=== PATIENT | male | born 2000 | race Hispanic/Latino ===

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

== ENCOUNTER 2025-05-04 03:17 | Emergency (ER) | payer OTHER ==
[~2025-05-04] VITALS: Ht 172.7 cm; Wt 86.2 kg
--- NOTE | 2025-05-04 03:20 | NUR ---
UA CUP PROVIDED
--- NOTE | 2025-05-04 03:24 | NUR ---
UA COLLECTED AND SENT ORDERED
[2025-05-04 03:44] LABS: IMMATURE GRANULOCYTE ABSOLUTE 0.07 K/uL (0-1); NUCLEATED RED BLOOD CELLS 0.0 % (0.0-0.19); PLATELET COUNT (AUTO) 270 K/uL (130-400); RED BLOOD CELL COUNT(AUTO) 5.52 MIL/uL (4.50-6.20); RED CELL DISTRIBUTION WIDTH 12.4 % (11.0-15.5); WHITE BLOOD COUNT (AUTO) 9.4 K/uL (4.8-10.8)
--- NOTE | 2025-05-04 03:44 | EKG ---
[facility] Test Date: 2025-05-04 Test Time: 03:39:50 Pat Name: JONATHAN DENIS Department: [facility] Room: Gender: M Steno Typist: [id number] : 2000 Requested By: [address] Order Number: [id number] Reading MD: Lucho Fu Measurements Intervals Harold Rate: 103 P: 30 UT: 161 QRS: 22 QRSD: 85 T: -23 QT: 343 QTc: 450 Interpretive Statements Sinus tachycardia Compared to ECG 10/16/2015 03:13:34 Sinus rhythm no longer present ST (T wave) deviation no longer present Electronically Signed On 05-04-2025 11:15:38 [employer] by Lucho Fu Please click the below link to view image of tracing.
[2025-05-04 03:46] LABS: AMPHET/METH SCREEN,URINE NEGATIVE (NEGATIVE); BARBITURATE SCREEN, URINE NEGATIVE (NEGATIVE); CANNABINOID SCREEN,URINE NEGATIVE (NEGATIVE); COCAINE SCREEN,URINE NEGATIVE (NEGATIVE)
[2025-05-04 03:52] LABS: CREATININE 0.9 mg/dL (0.5-1.3); GLOMERULAR FILTR. RATE CALC 122.0 mL/min (>90); GLUCOSE,RANDOM 146.0 mg/dL (70-105); SODIUM SERUM 140.0 mmol/L (136-145); UREA NITROGEN, BLOOD 20.0 mg/dL (7-18)
--- NOTE | 2025-05-04 04:53 | ERN ---
ED Note History of Present Illness Stated Complaint: CHEST PAIN SOB Chief Complaint: Chest Pain Time Seen by MD: 03:18 Dictation: 25-year-old male history of anxiety presents to emergency room with the complaints of the chest pain. Patient states that he was in bed about to sleep when he decided developing centralized chest pain that was pressure-like in substance. No radiation of pain to the neck or to the arm. States that he denies any trauma to the chest. Denies any heavy lifting. Denies any recent anxiety. Denies any family history of cardiac issues. No fever no cough no shortness a breath. No nausea vomiting or diarrhea. Allergies: Coded Allergies: No Known Allergies (Unverified Allergy, Unknown, 05/04/25) Past Medical History Past Medical History: No Pertinent History Surgical History: None Review of System Dictation Positive for palpitations and chest pain negative for shortness a breath. Review of Systems: was completed, & the rest were negative. Initial Vital Sign VS Vital Signs Date Time Temp Pulse Resp B/P (MAP) Pulse Ox O2 Delivery O2 Flow Rate FiO2 05/04/25 03:17 97.2 98 20 154/102 100 Room Air 05/04/25 03:37 0 21 Physical Exam Dictation Patient alert awake, no acute distress. Vital signs stable Normocephalic atraumatic Extraocular movements intact pupils equal round reactive to light Oropharynx clear. Neck supple full range of motion Heart tachycardic but no murmur. Lungs clear to auscultation bilaterally. Abdomen is soft nontender nondistended Full range of motion of all extremities A and O x4. Answers questions appropriately. Anxious appearing Results (Laboratory/Radiology) Laboratory/Radiology Laboratory Tests Test 05/04/25 03:24 05/04/25 03:36 Urine Opiates Screen NEGATIVE (NEGATIVE) Urine Barbiturates Screen NEGATIVE (NEGATIVE) Urine Phencyclidine Screen NEGATIVE (NEGATIVE) Urine Amphetamines Screen NEGATIVE (NEGATIVE) Urine Benzodiazepines Screen NEGATIVE (NEGATIVE) Urine Cocaine Screen NEGATIVE (NEGATIVE) Urine Marijuana (THC) Screen NEGATIVE (NEGATIVE) White Blood Count 9.4 K/uL (4.8-10.8) Red Blood Count 5.52 MIL/uL (4.50-6.20) Hemoglobin 16.0 g/dL (14.0-18.0) Hematocrit 47.3 % (42-54) Mean Corpuscular Volume 85.7 fL (79-99) Mean Corpuscular Hemoglobin 29.0 pg (27.0-33.0) Mean Corpuscular Hemoglobin Concent 33.8 g/dL (32.0-36.0) Red Cell Distribution Width 12.4 % (11.0-15.5) Platelet Count 270 K/uL (130-400) Mean Platelet Volume 10.3 fL (7.5-10.5) Immature Granulocyte % (Auto) 0.7 % (0-1) Neutrophils (%) (Auto) 51.5 % (40.0-77.0) Lymphocytes (%) (Auto) 38.1 % (21.0-51.0) Monocytes (%) (Auto) 7.2 % (3.0-13.0) Eosinophils (%) (Auto) 1.9 % (0.0-8.0) Basophils (%) (Auto) 0.6 % (0.0-5.0) Neutrophils # (Auto) 4.8 K/uL (1.8-7.7) Lymphocytes # (Auto) 3.6 K/uL (1.0-4.8) Monocytes # (Auto) 0.7 K/uL (0.1-1.0) Eosinophils # (Auto) 0.18 K/uL (0.00-0.70) Basophils # (Auto) 0.06 K/uL (0.00-0.20) Absolute Immature Granulocyte (auto 0.07 K/uL (0-1) Nucleated Red Blood Cells 0.0 % (0.0-0.19) Sodium Level 140 mmol/L (136-145) Potassium Level 3.6 mmol/L (3.5-5.1) Chloride Level 103 mmol/L (101-111) Carbon Dioxide Level 26 mmol/L (21-32) Blood Urea Nitrogen 20 mg/dL (7-18) H Creatinine 0.9 mg/dL (0.5-1.3) Glomerular Filtration Rate Calc 122 mL/min (>90) Random Glucose 146 mg/dL (70-105) H Total Calcium 8.3 mg/dL (8.5-10.1) L Troponin I High Sensitivity < 4 ng/L (4-75) L EKG: (+) NSR EKG Comment: Tachycardic ED Course ED Course Orders Procedure Category Date Status Time Drug Screen Urine LAB 05/04/25 Complete 03:18 Troponin I High LAB 05/04/25 Complete Sensitivity 03:26 Cbc With Differential LAB 05/04/25 Complete 03:26 Basic Metabolic Panel LAB 05/04/25 Complete 03:26 12 Lead Ekg Tracing- EKG 05/04/25 Complete Technical 03:34 Chest 1vw RAD 05/04/25 Taken 04:24 Vital Signs Date Time Temp Pulse Resp B/P (MAP) Pulse Ox O2 Delivery O2 Flow Rate FiO2 05/04/25 03:37 98.8 75 20 159/94 99 Room Air* 0 21 05/04/25 03:17 97.2 98 20 154/102 100 Room Air HEART Score Response (Comments) Value History: Low suspicion (0) 0 EKG: Normal 0 Age: < 45yrs (0) 0 Risk Factors: No known risk factors (0) 0 Initial Troponin: Normal limit (0) 0 HEART Score Risk: Low Risk for MACE (1-3) Total 0 Medical Decision Making MDM 25-year-old male here for evaluation of chest pain. Labs reassuring. EKG shows sinus tachycardia. Likely anxiety. We will discharge home at this time. We will have patient follow up with the PCP. All questions answered at this time. We will get chest x-ray to rule out any abnormalities. Likely discharge home DX & DISP Disposition: Discharge Departure Impression: Primary Impression: Chest pain Additional Impression: Anxiety Condition: Stable Referrals: SISSY HAQ MD (PCP) [address] MD May 04, 2025 04:53
[2025-05-04 05:47] VITALS: BP 132/66; PULSE 70; RESP 20; TEMP 98.8; O2SAT 100
--- NOTE | 2025-05-04 06:53 | HMCIMG ---
EXAM: CR Chest, 1 View. CLINICAL HISTORY: cp COMPARISON: None provided. FINDINGS: LUNGS: The lungs show no infiltrate or other acute finding. Please note that the entire left lung base and lateral costophrenic angle are not included. Right lateral costophrenic angle not included. PLEURAL SPACES: No evidence of pleural effusion or pneumothorax. MEDIASTINUM: The cardiomediastinal silhouette is within normal limits. BONES: No acute osseous abnormality. IMPRESSION: No acute cardiopulmonary pathology is evident on the single radiograph provided. Limitations as described above. /[place]
== END 2025-05-04 05:47 | disposition home or self-care (01) ==
LOC: EDH 03:17
DX: R07.89 Other chest pain (principal); F41.9 Anxiety disorder, unspecified; R00.2 Palpitations
CPT/HCPCS: 36415; 71045; 80048; 80305; 84484; 85025; 93005; 99285